=== PATIENT | female | born 1945 | race Caucasian/White ===

== ENCOUNTER 2017-04-18 10:54 | Inpatient (IN) | payer MEDICARE, BC ==
[~2017-04-18] VITALS: Ht 154.9 cm; Wt 65.1 kg
[2017-04-30] MEDS ORDERED: TEMA15CA PO (14:48)
[2017-04-30] MEDS ORDERED: ALPR.25 PO (14:48)
[2017-04-30] MEDS ORDERED: VITA10004 PO (14:48)
[2017-04-30] MEDS ORDERED: ALEN1TAB48 PO (14:48)
[2017-04-30] MEDS ORDERED: CALC600T64 PO (14:48)
[2017-04-30] MEDS ORDERED: CALCTAB19 PO (14:48)
[2017-04-30] MEDS ORDERED: ESTR42.5V VAGINAL (14:48)
[2017-04-30] MEDS ORDERED: ROSU10 PO (14:48)
[2017-05-02] VITALS (9 sets, daily range): BP systolic 113–155; BP diastolic 71–82; PULSE 67–87; RESP 17–20; TEMP 98–99; O2SAT 95–100
[2017-05-02] MEDS ORDERED: POVIDONE IODINE 5% (ANTISEPSIS KIT) 4 APPLICATIONS EACH NARE PRN (07:00)
[2017-05-02] MEDS ORDERED: CHLORHEXIDINE GLUCONATE 2 % 1 PACK (2 CLOTHS) TOPICAL PRN (07:00)
[2017-05-02] MEDS ORDERED: ceFAZolin 2 GM PREMIX 50 ML IV SCH (07:00)
[2017-05-02] MEDS ORDERED: SODIUM CHLORID 0.9% 500 ML IV PRN (07:00)
[2017-05-02] MEDS ORDERED: METRONIDAZOLE 500 MG/100 ML ISONTONIC SOLN IV SCH (07:00)
[2017-05-02] MEDS ORDERED: LACTATED RINGER'S 1000 ML IV PRN (07:00)
[2017-05-02] MEDS ORDERED: DEXT 5%-NACL 0.9% 1000 ML INJ 1,000 ML IV SCH (07:00)
[2017-05-02] MEDS ORDERED: METOPROLOL TARTRATE 25 MG TAB PO PRN (07:00)
[2017-05-02] MEDS ORDERED: INSULIN HUMAN REGULAR 1,000 UNITS/10 ML VIAL SQ PRN (07:00)
--- NOTE | 2017-05-02 07:56 | PD.HP.UP ---
H&P Update Note The Pre-Admit History and Physical Examination regarding the above named patient was reviewed (including, but not limited to, vital signs, heart, lungs, co-morbid conditions), and upon re-examination it is noted that: the patient's condition has not significantly changed since the last examination. Nancy Murdock MD May 02, 2017 07:56
[2017-05-02] MEDS ORDERED: SUGAMMADEX SODIUM 200 MG/2 ML VIAL IV PUSH ONE ×2 (09:06)
[2017-05-02] MEDS ORDERED: ACETAMINOPHEN 1000 MG/100 ML VIAL IV ONE (09:06)
--- NOTE | 2017-05-02 09:19 | PD.OP ---
Operative Report Date of Surgery: May 02, 2017 Preoperative Diagnosis: Rectal sigmoid carcinoma Postoperative Diagnosis: Same Procedure: Cystoscopy with bilateral ureteral catheter placement Anesthesia: MARILU Surgeon: Riky Hook Metal [employer]er Blasting(s): None Resident Surgeon: None Operation and Findings: 71-year-old female with a diagnosis rectal sigmoid cancer elected to undergo robotic-assisted colectomy by Dr. Murdock. Request for made for bilateral ureteral catheter placement. Patient is brought to the operating room and for myself as Iasbella Manuel. She was placed on the operating table in the dorsal lithotomy position, prepped and draped in usual sterile fashion, received preprocedure antibiotics, general endotracheal tube anesthesia was administered. 22 Chinese cystoscope was inserted bladder. Cystoscopy did not reveal any abnormalities. The left ureteral orifice was identified and permits were catheters inserted in the left ureteral orifice without difficulty. This was repeated on the right side without difficulty. A Campbell was inserted and the catheters were attached. She tolerated the procedure well. Riky Hook DO May 02, 2017 09:19
[2017-05-02] MEDS: D5-NS + KCL 20 MEQ INJ 1,000 ML IV SCH ×2 (11:32→18:12)
[2017-05-02] MEDS ORDERED: ACETAMINOPHEN/HYDROcodone 325 MG/5 MG TAB PO PRN ×2 (11:45)
[2017-05-02] MEDS ORDERED: Post-op Orders (for Pharmacy) MISC XX ONE (11:45)
[2017-05-02] MEDS ORDERED: POTASSIUM CHLOR 40 MEQ PREMIX 100 ML IV PRN (11:45)
[2017-05-02] MEDS ORDERED: POTASSIUM CHLOR 20 MEQ PREMIX 100 ML IV PRN (11:45)
[2017-05-02] MEDS ORDERED: ACETAMINOPHEN 325 MG TAB PO PRN (11:45)
[2017-05-02] MEDS ORDERED: ENALAPRILAT 1.25 MG/ML VIAL IV PRN (11:45)
[2017-05-02] MEDS ORDERED: diphenhydrAMINE HCL 50 MG/ML VIAL IV PRN (11:45)
[2017-05-02] MEDS ORDERED: BENZOCAINE 6 MG/MENTHOL 10 MG LOZENGE BUCCAL PRN (11:45)
[2017-05-02] MEDS ORDERED: ONDANSETRON HCL 4 MG/2 ML VIAL IV PRN (11:45)
[2017-05-02] MEDS ORDERED: NALOXONE HCL 0.4 MG/ML AMP IV PRN (11:45)
[2017-05-02] MEDS ORDERED: SODIUM CHLORIDE 0.9% FLUSH 5 ML FLUSH IVF PRN (11:45)
[2017-05-02] MEDS ORDERED: ENALAPRILAT 2.5 MG/2 ML VIAL IV PRN (11:45)
[2017-05-02] MEDS ORDERED: MORPHINE SULFATE 30 MG/30 ML PCA IV SCH (11:45)
[2017-05-02] MEDS ORDERED: ONDANSETRON HCL 4 MG/2 ML VIAL IV PUSH ONE (12:00)
[2017-05-02] MEDS ORDERED: PROPOFOL 200 MG/20 ML AMP IV ONE (12:00)
[2017-05-02] MEDS: KETOROLAC TROMETHAMINE 30 MG/ML (IVP) VIAL IVP SCH ×3 (12:00→23:43)
[2017-05-02] MEDS ORDERED: PHENYLEPH/NS 1000 MCG/10 ML SYR IV ONE (12:00)
[2017-05-02] MEDS ORDERED: LACTATED RINGER'S 1000 ML INJ 2,000 ML IV ONE (12:00)
[2017-05-02] MEDS ORDERED: MIDAZOLAM HCL 2 MG/2 ML VIAL ONE (12:21)
[2017-05-02] MEDS ORDERED: fentaNYL CITRATE 250 MCG/5 ML AMP ONE (12:22)
[2017-05-02] MEDS ORDERED: *morphine SULFATE 8 MG/ML PERIprocedure ONLY ONE ×2 (12:33→12:51)
[2017-05-02 12:38] LABS: AUTOMATED NEUTROPHIL # 8.8 TH/MM3 (1.8-7.7); BASOPHIL % 0.4 % (0.0-2.0); EOSINOPHIL % 0.1 % (0.0-4.0); HEMATOCRIT 33.7 % (35.0-46.0); HEMO FLAGS DIFF FINAL; LYMPH % 13.5 % (9.0-44.0); LYMPHOCYTE # 1.4 TH/MM3 (1.0-4.8); MEAN CORPUSCULAR HEMOGLOBIN 34.7 PG (27.0-34.0); MEAN CORPUSCULAR HGB CONC 34.7 % (32.0-36.0); MONO % 1.9 % (0.0-8.0); NEUT % 84.1 % (16.0-70.0); PLATELET COUNT 201 TH/MM3 (150-450); RED BLOOD COUNT 3.37 MIL/MM3 (4.00-5.30); RED CELL DISTRIBUTION WIDTH 13.5 % (11.6-17.2); WHITE BLOOD COUNT 10.4 TH/MM3 (4.0-11.0)
[2017-05-02 12:57] LABS: POTASSIUM 3.9 MEQ/L (3.5-5.1)
[2017-05-02] MEDS: PCA - TOTAL MG MORPHINE DELIVERED PER SHIFT SCH ×2 (14:00→22:00)
[2017-05-02] MEDS: metroNIDAZOLE 500 MG INJ 100 ML IV SCH ×2 (17:07→23:43)
[2017-05-02] MEDS: SODIUM CHLORIDE 0.9% FLUSH 5 ML FLUSH IVF SCH (21:00)
[2017-05-03] VITALS (18 sets, daily range): BP systolic 108–145; BP diastolic 63–75; PULSE 65–80; RESP 16–18; TEMP 97.8–99.3; O2SAT 94–100
[2017-05-03] MEDS: D5-NS + KCL 20 MEQ INJ 1,000 ML IV SCH ×3 (02:39→23:15)
[2017-05-03 04:32] LABS: AUTOMATED NEUTROPHIL # 8.7 TH/MM3 (1.8-7.7); BASOPHIL % 0.1 % (0.0-2.0); HEMO FLAGS DIFF FINAL; LYMPHOCYTE # 1.6 TH/MM3 (1.0-4.8); MEAN CELL VOLUME 101.6 FL (80.0-100.0); MEAN CORPUSCULAR HEMOGLOBIN 33.4 PG (27.0-34.0); MEAN CORPUSCULAR HGB CONC 32.8 % (32.0-36.0); MONO % 7.3 % (0.0-8.0); NEUT % 78.6 % (16.0-70.0); PLATELET COUNT 173 TH/MM3 (150-450); RED BLOOD COUNT 3.05 MIL/MM3 (4.00-5.30); RED CELL DISTRIBUTION WIDTH 13.9 % (11.6-17.2); WHITE BLOOD COUNT 11.1 TH/MM3 (4.0-11.0)
[2017-05-03 05:00] LABS: BICARBONATE 25.8 MEQ/L (21.0-32.0); POTASSIUM 4.4 MEQ/L (3.5-5.1)
[2017-05-03 05:25] LABS: CALCIUM-PROTEIN CORRECTED 7.7 MG/DL (8.5-10.1)
[2017-05-03] MEDS: KETOROLAC TROMETHAMINE 30 MG/ML (IVP) VIAL IVP SCH ×4 (05:47→23:14)
[2017-05-03] MEDS: PCA - TOTAL MG MORPHINE DELIVERED PER SHIFT SCH ×3 (05:54→21:27)
[2017-05-03] MEDS: PANTOPRAZOLE SODIUM 40 MG VIAL IVP SCH (08:47)
[2017-05-03] MEDS: metroNIDAZOLE 500 MG INJ 100 ML IV SCH (08:48)
[2017-05-03] MEDS: SODIUM CHLORIDE 0.9% FLUSH 5 ML FLUSH IVF SCH ×2 (09:00→21:00)
[2017-05-03] MEDS: HEPARIN SODIUM - SQ 10,000 UNITS/ML VIAL SQ SCH ×2 (10:51→23:15)
--- NOTE | 2017-05-03 13:16 | HHI.PR ---
Subjective Remarks No N or V. No BMs Objective Vital Signs Date Time Temp Pulse Resp B/P Pulse Ox O2 Delivery O2 Flow Rate FiO2 05/03/17 11:00 72 05/03/17 11:00 73 16 108/63 96 05/03/17 10:00 76 05/03/17 09:00 74 05/03/17 08:00 70 05/03/17 07:15 98.7 80 16 117/65 100 05/03/17 07:00 68 05/03/17 06:00 74 05/03/17 05:54 16 05/03/17 05:00 66 05/03/17 04:00 66 05/03/17 03:00 65 05/03/17 03:00 98.3 76 111/64 100 05/03/17 02:00 66 05/03/17 01:00 66 05/03/17 00:00 70 05/02/17 23:00 67 05/02/17 23:00 98.8 81 113/71 100 05/02/17 22:00 70 05/02/17 22:00 16 05/02/17 21:00 72 05/02/17 20:00 70 05/02/17 20:00 99.0 75 133/71 100 05/02/17 19:00 80 05/02/17 18:09 17 05/02/17 18:00 67 05/02/17 17:00 81 05/02/17 15:46 98.0 81 17 133/71 95 05/02/17 15:30 97.5 82 20 130/59 99 Nasal Cannula 2 05/02/17 15:00 82 20 130/59 99 Nasal Cannula 2 05/02/17 14:00 88 20 128/64 100 Nasal Cannula 2 05/02/17 14:00 17 I/O 05/02/17 05/02/17 05/02/17 05/03/17 05/03/17 05/03/17 07:00 15:00 23:00 07:00 15:00 23:00 Intake Total 2739 ml 640 ml 1980 ml Output Total 1450 ml 475 ml 300 ml Balance 1289 ml 165 ml 1680 ml Intake Oral 120 ml 480 ml IV Total 239 ml 520 ml 1500 ml Other 2500 ml Output Urine Total 1400 ml 475 ml 300 ml Estimated Blood Loss 50 ml Result Diagram: 05/03/17 0320 05/03/17 0320 Objective Remarks VS-S Abd: flat,soft,dressings dry I&Os-OK Labs-OK Assessment and Plan Assessment and Plan POD#1-Stable D/C patrick mckenzie AM. Guido ARCHIBALD John Timothy MD May 03, 2017 13:16
[2017-05-04] VITALS (7 sets, daily range): BP systolic 142–176; BP diastolic 70–83; PULSE 69–89; RESP 16–20; TEMP 98–99.5; O2SAT 94–98
[2017-05-04] MEDS: PCA - TOTAL MG MORPHINE DELIVERED PER SHIFT SCH ×2 (05:47→11:50)
[2017-05-04] MEDS: KETOROLAC TROMETHAMINE 30 MG/ML (IVP) VIAL IVP SCH ×4 (05:51→23:14)
--- NOTE | 2017-05-04 07:18 | MP ---
cc: NIDHI MURDOCK M.D., CHET DO DODD, PAUL M. M.D. DATE OF SURGERY: May 02, 2017 PREOPERATIVE DIAGNOSIS Cancer of the rectosigmoid junction. POSTOPERATIVE DIAGNOSIS Cancer of the rectosigmoid junction. PROCEDURE Robotic low anterior resection. SURGEON Nidhi Murdock MD. ACADEMIC AFFAIRS ASSISTANT: Lan ANESTHESIA General per ET tube ESTIMATED BLOOD LOSS Less 50 cc. OPERATIVE INDICATIONS The patient is a 71-year-old female who on recent colonoscopy was noted to have carcinoma of the rectosigmoid junction. OPERATIVE FINDINGS The patient had a 3 cm cancer at the rectosigmoid junction. There were no visible abnormalities noted within the liver. The lymph nodes were not visibly enlarged. The uterus and ovaries appeared normal as well. OPERATIVE COURSE The patient was brought to the operating room, placed in supine position. After induction of general anesthesia the patient was placed in Robert stirrups and all bony prominences were carefully padded. The skin of the anterior abdominal wall, as well as the perineal area, was then prepped and draped in usual sterile fashion. Dr. Hook then came in and performed cystoscopy with placement of bilateral ureteral catheters. (Please see his operative note for details). A site was then chosen for the camera being located just to the right and above the umbilicus. A 10/12 port was placed at this location under direct vision using the laparoscope. CO2 insufflation was then undertaken and a brief abdominal survey was performed. There was nothing noted that would preclude the abdominal approach. The remainder of the ports were then placed as follows: The #1 10/12 port was placed just inside the right anterior superior iliac spine. The #5 assist port was placed just under the right costal margin equal distance between the camera and the #1 port. The #3 port was placed in line with the umbilicus in the left anterior axillary line. The patient was hydro-planed with head down and slightly to the right. The omentum was brought up and out of the pelvis and the patient was noted to have a very redundant descending and sigmoid colon. With this, I felt I would not need to take down the splenic flexure and so the #2 and 8 Di Julieth port was placed in the left midclavicular line just above the umbilicus. The small bowel was brought up and out of the pelvis and lay nicely without difficulty and the robot was docked. The rectosigmoid was retracted down into the left and the perineum was scored on the right. A window was then made and dissection continued in this window until the left ureter was clearly identified and swept away from the vessels. The dissection continued up to the base of the vessels and these were dissected free circumferentially. The inferior mesenteric vessels were doubly clipped proximally, single clipped distally, divided and ligated. Dissection then continued in the posterior plane down to the level of the distal rectum and up and around the lateral right side. The sigmoid colon was then retracted to the right and the lateral peritoneal attachment of the sigmoid colon were dissected free. This dissection continued until our previous dissection was met. Dissection then continued down the left pelvic sidewall freeing the rectum from the sidewall down to the level of the mid rectum. Dissection then continued anteriorly opening up the fascia and entering onto the distal rectum. Dissection continued circumferentially on the distal rectum until we had mobility from the distal rectum, all the way up to the distal descending colon. Sponge stick was then placed in the rectum and after notation of where the tumor was at the rectosigmoid junction, a site was chosen for division of the rectum on the lower mid rectum. The mesentery at this level was then divided using the harmonic scalpel and an [place] Endostapler blue load was placed across the bowel at this level. This was closed, held for 30 seconds fired and removed. The 29 EEA stapler was then advanced through the anal opening and up to the rectal stump. A small amount of fibrofatty tissue was cleared circumferentially. This lay in a nice orientation. The bowel was then brought down and came down nicely with plenty of the length for a tension-free anastomosis. The descending colon was freed of some attachments on the lateral sidewall just to have it lay in a nicer orientation. The robot was then undocked. A 10-12 cm transverse incision was made just above the pubic symphysis using electrocautery. Dissection was carried down to the fascia of the anterior abdominal wall. The fascia was then divided the length of the skin incision. The fibers of the rectus abdominis was then divided and the posterior fascia/peritoneum was then divided the length of the incision as well. A wound protector was then placed. The proximal staple line of the bowel was then grasped and pulled up and out through the incision. A site was then chosen for proximal division of the bowel where it came down nicely to the pubic tubercle. The mesentery at this level was serially divided and ligated using 0 Vicryl ties and a pursestring stapling device was placed across the bowel at this level. The distal bowel was occluded with a Brenda clamp and the bowel was divided. The anvil was then placed into the bowel and the previously placed pursestring suture was then secured. After gentle digital dilatation of the anus, the 29 EEA stapler was advanced up to the level of the rectal stump. The spike was then advanced just posterior to the staple line. The anvil was into the spike and being careful that the bowel was not twisted, the stapler was closed. This was held for 30 seconds fired and removed. Both anastomotic rings appeared to be complete and the anastomosis appeared pink and healthy circumferentially. A small amount of warm normal saline was placed into the pelvis and the proximal bowel was occluded with digital pressure. Air was insufflated into the rectum until gentle tension was noted in the anastomosis with no sign of any leakage noted. The air was desufflated to the extent possible and the saline was suctioned out of the pelvic. All dissection beds were examined. There was no sign of any significant bleeding noted. The posterior fascia of the suprapubic incision was closed in running fashion using #1 PDS and the anterior fascia of the suprapubic incision was closed in running fashion using #1 PDS. An OpSite was then placed over the wound and CO2 insufflation was then resumed. The right lower quadrant and umbilical 10/12 trocar sites were then closed using the crossbow closure device and 0 Vicryl suture. These were placed but not tied until the CO2 insufflation was removed. CO2 insufflation was then removed from the peritoneal cavity and all trocars were then removed. The previously placed fascial sutures were then secured. All wounds were copious irrigated with warm normal saline. The skin of the suprapubic incision was closed in a running subcuticular fashion using 3-0 Vicryl and skin at the trocar sites were closed in interrupted septic fashion using 3-0 Vicryl. Steri-Strips and sterile dressings were then applied. The right ureteral stent was removed. All sponge, needle, and instrument counts were correct and the patient was returned to the Post-Anesthesia Care Unit in stable condition. MD MONICA Dowd/ZEUS /11:32 AM /6:46 AM
[2017-05-04 07:25] LABS: AUTOMATED NEUTROPHIL # 5.8 TH/MM3 (1.8-7.7); BASOPHIL % 0.4 % (0.0-2.0); EOSINOPHIL # 0.1 TH/MM3 (0-0.4); EOSINOPHIL % 0.7 % (0.0-4.0); HEMATOCRIT 33.3 % (35.0-46.0); HEMO FLAGS DIFF FINAL; LYMPH % 35.1 % (9.0-44.0); LYMPHOCYTE # 3.6 TH/MM3 (1.0-4.8); MEAN CELL VOLUME 102.1 FL (80.0-100.0); MEAN CORPUSCULAR HEMOGLOBIN 33.6 PG (27.0-34.0); MEAN CORPUSCULAR HGB CONC 32.9 % (32.0-36.0); MONO % 6.4 % (0.0-8.0); NEUT % 57.4 % (16.0-70.0); PLATELET COUNT 176 TH/MM3 (150-450); RED BLOOD COUNT 3.26 MIL/MM3 (4.00-5.30); RED CELL DISTRIBUTION WIDTH 14.4 % (11.6-17.2); WHITE BLOOD COUNT 10.2 TH/MM3 (4.0-11.0)
[2017-05-04 07:53] LABS: POTASSIUM 4.2 MEQ/L (3.5-5.1)
[2017-05-04] MEDS: SODIUM CHLORIDE 0.9% FLUSH 5 ML FLUSH IVF SCH ×2 (09:00→16:36)
[2017-05-04] MEDS: PANTOPRAZOLE SODIUM 40 MG VIAL IVP SCH (09:08)
--- NOTE | 2017-05-04 10:42 | HHI.PR ---
Subjective Remarks No N or V. Small BM Objective Vital Signs Date Time Temp Pulse Resp B/P Pulse Ox O2 Delivery O2 Flow Rate FiO2 05/04/17 10:18 94 Nasal Cannula 2.00 05/04/17 09:09 16 05/04/17 06:00 16 05/04/17 05:47 16 05/04/17 03:20 99.2 74 16 142/70 96 05/03/17 23:00 98.1 75 16 145/75 94 05/03/17 22:00 16 05/03/17 21:27 16 05/03/17 20:20 97.8 79 16 131/73 96 05/03/17 20:03 95 21 05/03/17 15:00 99.3 80 18 130/72 98 05/03/17 14:00 16 05/03/17 11:00 72 05/03/17 11:00 73 16 108/63 96 I/O 05/03/17 05/03/17 05/03/17 05/04/17 05/04/17 05/04/17 07:00 15:00 23:00 07:00 15:00 23:00 Intake Total 1980 ml 1821 ml 1077 ml Output Total 300 ml 550 ml 700 ml Balance 1680 ml 1271 ml 377 ml Intake Oral 480 ml 800 ml 240 ml IV Total 1500 ml 1021 ml 837 ml Output Urine Total 300 ml 550 ml 700 ml Result Diagram: 05/04/1761605/04/1717 Objective Remarks VS-S Abd: flat,soft,dressings removed. Wound clean I&Os-OK Labs-OK Assessment and Plan Assessment and Plan POD#2-Stable Regular diet,Decrease IVs,continue to ambulate Damián Galvan MD May 04, 2017 10:42
[2017-05-04] MEDS: HEPARIN SODIUM - SQ 10,000 UNITS/ML VIAL SQ SCH ×2 (11:18→23:15)
[2017-05-04] MEDS: D5-NS + KCL 20 MEQ INJ 1,000 ML IV SCH (16:36)
[2017-05-05] VITALS: BP 149/82; PULSE 81; RESP 20; TEMP 98.2; O2SAT 97
[2017-05-05 01:07] VITALS: O2SAT 98
[2017-05-05] MEDS: KETOROLAC TROMETHAMINE 30 MG/ML (IVP) VIAL IVP SCH (04:59)
[2017-05-05 06:13] LABS: AUTOMATED NEUTROPHIL # 3.9 TH/MM3 (1.8-7.7); BASOPHIL % 0.4 % (0.0-2.0); EOSINOPHIL # 0.1 TH/MM3 (0-0.4); EOSINOPHIL % 1.7 % (0.0-4.0); HEMATOCRIT 33.7 % (35.0-46.0); HEMO FLAGS DIFF FINAL; LYMPH % 35.7 % (9.0-44.0); LYMPHOCYTE # 2.6 TH/MM3 (1.0-4.8); MEAN CELL VOLUME 100.4 FL (80.0-100.0); MEAN CORPUSCULAR HEMOGLOBIN 33.4 PG (27.0-34.0); MEAN CORPUSCULAR HGB CONC 33.3 % (32.0-36.0); MONO % 8.1 % (0.0-8.0); NEUT % 54.1 % (16.0-70.0); PLATELET COUNT 182 TH/MM3 (150-450); RED BLOOD COUNT 3.36 MIL/MM3 (4.00-5.30); RED CELL DISTRIBUTION WIDTH 13.9 % (11.6-17.2); WHITE BLOOD COUNT 7.2 TH/MM3 (4.0-11.0)
[2017-05-05 06:44] LABS: BICARBONATE 28.5 MEQ/L (21.0-32.0); POTASSIUM 3.6 MEQ/L (3.5-5.1)
[2017-05-05 08:00] VITALS: BP 161/71; PULSE 74; RESP 16; TEMP 97.2; O2SAT 94
[2017-05-05] MEDS: PANTOPRAZOLE SODIUM 40 MG VIAL IVP SCH (08:36)
[2017-05-05] MEDS: SODIUM CHLORIDE 0.9% FLUSH 5 ML FLUSH IVF SCH (08:37)
[2017-05-05 09:02] VITALS: O2SAT 97
[2017-05-05] MEDS: HEPARIN SODIUM - SQ 10,000 UNITS/ML VIAL SQ SCH (11:32)
[2017-05-05 12:00] VITALS: BP 150/69; PULSE 75; RESP 16; TEMP 97.8; O2SAT 91
--- NOTE | 2017-05-05 13:43 | HHI.PR ---
Subjective Remarks POD#3 s/p robotic LAR comfortable, anxious Objective Vital Signs Date Time Temp Pulse Resp B/P Pulse Ox O2 Delivery O2 Flow Rate FiO2 05/05/17 12:00 97.8 75 16 150/69 91 05/05/17 09:02 97 05/05/17 08:00 97.2 74 16 161/71 94 05/05/17 01:07 98 Nasal Cannula 2.00 05/05/17 00:00 98.2 81 20 149/82 97 05/04/17 20:00 99.5 89 20 176/80 98 05/04/17 16:00 99.1 81 20 172/73 97 I/O 05/04/17 05/04/17 05/04/17 05/05/17 05/05/17 05/05/17 07:00 15:00 23:00 07:00 15:00 23:00 Intake Total 1077 ml 1236 ml 758 ml 455 ml Output Total 700 ml 575 ml 250 ml Balance 377 ml 661 ml 758 ml 205 ml Intake Oral 240 ml 700 ml 600 ml 240 ml IV Total 837 ml 536 ml 158 ml 215 ml Output Urine Total 700 ml 575 ml 250 ml # Voids 3 # Bowel Movements 2 Result Diagram: 05/05/17 0524 05/05/17 0526 Objective Remarks Abdomen soft, nondistended, tender wounds clean Assessment and Plan Assessment and Plan Doing well Home soon. Nancy Murdock MD May 05, 2017 13:43
[2017-05-05] MEDS ORDERED: HYDR-3516 PO (13:44)
== END 2017-05-05 16:27 | disposition home or self-care (01) | DRG 331 ==
LOC: HSDI 05-02 06:22 → HCIN 05-02 15:44 → N07B 05-04 13:53
PROVIDERS: ADMIT Colon & Rectal Surgery; ATTEND Colon & Rectal Surgery
PROC: 0T9B80Z Drainage of Bladder with Drainage Device, Via Natural or Artificial Opening Endoscopic (ICD-10-PCS; 2017-05-02)
PROC: 8E0W4CZ Robotic Assisted Procedure of Trunk Region, Percutaneous Endoscopic Approach (ICD-10-PCS; principal; 2017-05-02 08:19)
PROC: 0DBN4ZZ Excision of Sigmoid Colon, Percutaneous Endoscopic Approach (ICD-10-PCS; 2017-05-02 08:19)
DX: C19 Malignant neoplasm of rectosigmoid junction (principal)
CPT/HCPCS: 80048; 84155; 85025; 86850; 86900; 86901; 88309; 94150; C9113; J0131; J0690; J1644; J1885; J2250; J2270; J2370; J2405; J3010; J3480; J7120